=== PATIENT | female | born 1980 | race Caucasian/White ===

== ENCOUNTER 2017-02-20 07:36 | Emergency (ER) | payer MEDICAID ==
[2017-02-20 07:49] VITALS: BP 126/87; PULSE 93; RESP 16; TEMP 98.8; O2SAT 95
--- NOTE | 2017-02-20 07:59 | EDPHY ---
H & P Time Seen by Provider: 02/20/17 07:49 HPI/ROS: This patient complains of a 4 day history of cough occasionally productive of sputum and a 24 hour history of sore throat of moderate intensity associated with odynophagia. She has associated nasal congestion also for 4 days. Finally , she complains of mild left ear discomfort that feels like pressure. She denies any other associated symptoms. She notes no clear exacerbating or alleviating factors for symptoms except for worsening of her cough when she smokes cigarettes and improvement when she uses her albuterol inhaler. Her last albuterol use was last night. ROS: No fevers or chills. No other constitutional symptoms HEENT: No facial pain. No change in her hearing. No discharge from her ear. No change in her voice. Pulmonary: No pleuritic pain. No respiratory distress. No hemoptysis. Cardiovascular: No lightheadedness. No leg swelling or pain. No heart palpitations GI: No belly pain. No nausea vomiting. Integumentary: No skin rash 7 point ROS is otherwise negative Past Medical/Surgical History: ADHD Asthma Smoking Status: Heavy smoker Physical Exam: Physical Exam Vital signs are normal. General: No acute distress HEENT: Nose: Clear discharge bilaterally. No sinus tenderness to percussion. Ears: External canals and tympanic membranes are clear with no erythema or abnormal findings bilaterally. Oropharynx: No erythema or exudates. No dysphonia. No drooling or stridor. Eyes: Pupils equal and react to light. Extraocular motions are intact. Neck: Supple with no meningismus. No lymphadenopathy Lungs: Minimal expiratory wheeze. No rales or rhonchi are appreciated. No respiratory distress. Cardiac: Regular rate and rhythm with no murmur gallop or rub. No lower extremity swelling or calf tenderness. Skin: No rash or pallor. Neuro: Alert with no focal deficits noted. Initial differential diagnosis: URI with cough, viral pharyngitis, strep pharyngitis, bronchitis, mild asthma exacerbation Constitutional: Initial Vital Signs Temperature (C) 37.1 C 02/20/17 07:37 Heart Rate 93 02/20/17 07:37 Respiratory Rate 16 02/20/17 07:37 Blood Pressure 126/87 H 02/20/17 07:37 O2 Sat (%) 95 02/20/17 07:37 O2 Delivery Mode Room Air Allergies/Adverse Reactions: amoxicillin Allergy (Severe, Verified 02/20/17 07:49) Swelling/neck,face,throat Penicillins Allergy (Intermediate, Verified 02/20/17 07:49) Swelling/neck,face,throat Home Medications: Medication Instructions Recorded Clonidine 04/20/16 INTUNIV 04/20/16 LaMICtal 04/20/16 Albuterol 02/20/17 Albuterol Hfa Anes Only [Proair 2 puffs IH Q4 PRN #1 mdi 02/20/17 Hfa Icu (*)] Azithromycin [Zithromax] 250 mg PO DAILY #6 tab 02/20/17 Flovent 110 MCG Hfa MDI (*) 02/20/17 Fluticasone Hfa 220 Mcg [Flovent 2 puffs IH DAILY #1 mdi 02/20/17 220 MCG Hfa MDI (*)] MDM/Departure - MDM ED Course/Re-evaluation: Rapid strep is negative. I counseled this patient to quit smoking Discussion: Smoker with cough, minimal wheeze, history of asthma will cover her for potential bacterial bronchitis given risk factor of smoking. However, no clinical evidence currently to suggest lower respiratory infection, sepsis or other concerning findings. - Depart Disposition: Home, Routine, Self-Care Clinical Impression: Cough, Viral pharyngitis Asthma Qualifiers: Asthma severity: mild intermittent Asthma complication type: uncomplicated Qualified Code(s): J45.20 - Mild intermittent asthma, uncomplicated Condition: Good Instructions: How to Stop Smoking (ED) Additional Instructions: Diagnoses: 1. Cough 2. Asthma 3. Viral pharyngitis Plan: Humidifier Quit smoking Continue your albuterol and Flovent Add Zithromax antibiotic Ibuprofen and/or Tylenol for sore throat as needed. Return for any significant worsening despite treatment plan Prescriptions: Albuterol Hfa Anes Only [Proair Hfa Icu (*)] 2 puffs IH Q4 PRN #1 mdi PRN Reason: Wheezing Azithromycin [Zithromax] 250 mg PO DAILY #6 tab Fluticasone Hfa 220 Mcg [Flovent 220 MCG Hfa MDI (*)] 2 puffs IH DAILY #1 mdi Referrals: CHRIS CARTER,. [Primary Care Provider] - As per Instructions
== END 2017-02-20 08:22 | disposition home or self-care (01) ==
LOC: CED 07:36
DX: J45.20 Mild intermittent asthma, uncomplicated (principal); J02.8 Acute pharyngitis due to other specified organisms; B97.89 Other viral agents as the cause of diseases classified elsewhere; F17.200 Nicotine dependence, unspecified, uncomplicated
CPT/HCPCS: 87880-PO

== ENCOUNTER 2017-07-27 11:24 | Emergency (ER) | payer MEDICAID ==
[2017-07-27 11:37] VITALS: BP 125/86; RESP 16; TEMP 98.4
--- NOTE | 2017-07-27 11:58 | EDPHY ---
H & P Time Seen by Provider: 07/27/17 11:52 HPI/ROS: This patient lost her balance at the 1st landing of stairs in her home 3 days prior to arrival and fell catching herself against the wall but injuring her left great toe. She does not recall which direction her toe went but she has had ongoing moderate to severe pain to her toe since that time that worsens with ambulation in partially improves with ibuprofen. She took 800 mg of ibuprofen this morning at 7:30 a.m.. She drove herself here by private vehicle for further evaluation. ROS: Neuro: No numbness or tingling. No head injury or headache. Musculoskeletal: No other injuries. Integumentary: No gross discoloration to the toe. No lacerations abrasions. 5 point ROS is otherwise negative. Past Medical/Surgical History: Mood disorder. Smoking Status: Heavy smoker Physical Exam: Physical Exam Vital signs are normal. General: No acute distress HEENT: Atraumatic. Eyes: Pupils equal and react to light. Extraocular motions are intact. Lungs: No respiratory distress. Cardiac: Brisk capillary refill is intact throughout. Skin: No rash or pallor. Extremities: Atraumatic normal except for left great toe Left great toe: Patient has mild tenderness throughout the extends to the distal 1st metatarsal head region Neuro: Alert and oriented x3 with no sensorimotor deficits in the affected toe. Initial differential diagnosis: Toe sprain versus fracture versus contusion. Constitutional: Initial Vital Signs Temperature (C) 36.9 C 07/27/17 11:32 Heart Rate 75 07/27/17 11:32 Respiratory Rate 16 07/27/17 11:32 Blood Pressure 125/86 H 07/27/17 11:32 O2 Sat (%) 96 07/27/17 11:32 Allergies/Adverse Reactions: amoxicillin Allergy (Severe, Verified 07/27/17 11:28) Swelling/neck,face,throat Penicillins Allergy (Intermediate, Verified 07/27/17 11:28) Swelling/neck,face,throat Home Medications: Medication Instructions Recorded Clonidine 04/20/16 INTUNIV 04/20/16 LaMICtal 04/20/16 Albuterol 02/20/17 Flovent 110 MCG Hfa MDI (*) 02/20/17 MDM/Departure - MDM Diagnostics: Three-view to x-ray: Negative for fracture by my interpretation ED Course/Re-evaluation: Our nurse placed the patient in a postop shoe. I counseled the patient regarding toe sprain. Discussion: Patient with uncomplicated toe sprain without evidence of fracture , other foot injury, ankle injury or other concerning findings. - Depart Disposition: Home, Routine, Self-Care Clinical Impression: Toe sprain Qualifiers: Encounter type: initial encounter Qualified Code(s): S93.509A - Unspecified sprain of unspecified toe(s), initial encounter Condition: Good Instructions: Sprain (ED) Additional Instructions: Diagnosis: Toe sprain Plan: Postop shoe until symptoms improve Continue ibuprofen Add Tylenol if needed Symptoms should improve over the next 5-7 days. If you're not improving, follow up with the cleaning specialist-name and number listed below. Referrals: Patricia Ruiz DPM [Doctor of Podiatric Medicine] - As per Instructions
[2017-07-27 12:44] VITALS: PULSE 70; O2SAT 95
== END 2017-07-27 12:44 | disposition home or self-care (01) ==
LOC: CED 11:24
DX: S93.502A Unspecified sprain of left great toe, initial encounter (principal); F17.200 Nicotine dependence, unspecified, uncomplicated; W19.XXXA Unspecified fall, initial encounter; Y92.009 Unspecified place in unspecified non-institutional (private) residence as the place of occurrence of the external cause
CPT/HCPCS: 73660-PO; L3260

== ENCOUNTER 2017-10-20 11:18 | Emergency (ER) | payer MEDICAID ==
[2017-10-20 11:29] VITALS: BP 137/92; PULSE 88; RESP 14; TEMP 97.2; O2SAT 96
[2017-10-20] MEDS ORDERED: IBUPROFEN 600 MG TAB PO ONE (11:35)
--- NOTE | 2017-10-20 11:37 | EDPHY ---
H & P Time Seen by Provider: 10/20/17 11:30 HPI/ROS: CHIEF COMPLAINT: Right ankle pain HISTORY OF PRESENT ILLNESS: 36-year-old female presents with right ankle pain. She twisted her ankle this morning while walking down some stairs. Immediate onset of moderate pain and a popping sensation in her ankle. Able to bear weight. No other injuries. ROS: No numbness, weakness, bleeding, syncopal episode. Past Medical/Surgical History: Asthma Anxiety PTSD Smoking Status: Heavy smoker Physical Exam: Alert, pleasant Extremities: Right ankle with swelling over the lateral malleolus, posterior lateral malleolus tenderness, proximal fifth metatarsal tenderness, no midfoot tenderness. The ankle is stable and the Achilles tendon is intact. Vascular: Pedal pulses 2+ Neurologic: Ankle and foot with normal sensation and strength Skin: Intact Constitutional: Initial Vital Signs Temperature (C) 36.2 C 10/20/17 11:23 Heart Rate 88 10/20/17 11:23 Respiratory Rate 14 10/20/17 11:23 Blood Pressure 137/92 H 10/20/17 11:23 O2 Sat (%) 96 10/20/17 11:23 O2 Delivery Mode Room Air Allergies/Adverse Reactions: amoxicillin Allergy (Severe, Verified 07/27/17 11:28) Swelling/neck,face,throat Penicillins Allergy (Intermediate, Verified 07/27/17 11:28) Swelling/neck,face,throat Home Medications: Medication Instructions Recorded Clonidine 04/20/16 INTUNIV 04/20/16 LaMICtal 04/20/16 Albuterol 02/20/17 Flovent 110 MCG Hfa MDI (*) 02/20/17 Medical Decision Making - Diagnostics Imaging Results: Imaging Impressions Ankle X-Ray 10/20/17 11:29 Impression: Negative right ankle series. Foot X-Ray 10/20/17 11:31 Impression: Negative right foot radiographs. X-ray independently reviewed by me reveals no acute fracture. ED Course/Re-evaluation: This patient presents with right ankle pain and swelling, consistent with right ankle sprain. X-ray reveals no evidence of fracture. She was placed in an ankle stirrup splint and crutches dispensed. - Data Points Medications Given: Discontinued Medications Ibuprofen (Motrin) 600 mg PO EDNOW ONE Stop: 10/20/17 11:36 Last Admin: 10/20/17 11:39 Dose: 600 mg Departure - Departure Disposition: Home, Routine, Self-Care Clinical Impression: Ankle sprain Qualifiers: Encounter type: initial encounter Involved ligament of ankle: tibiofibular ligament Laterality: right Qualified Code(s): S93.431A - Sprain of tibiofibular ligament of right ankle, initial encounter Condition: Good Instructions: Ankle Sprain (ED), Crutch Instructions (ED), Ankle Stirrup Splint (ED) Additional Instructions: Ibuprofen 600 mg 3 times daily while the pain persists. Referrals: CHRIS CARTER,. [Primary Care Provider] - As per Instructions Stand Alone Forms: Work Excuse
== END 2017-10-20 12:14 | disposition home or self-care (01) ==
LOC: CED 11:18
DX: S93.431A Sprain of tibiofibular ligament of right ankle, initial encounter (principal); J45.909 Unspecified asthma, uncomplicated; F17.200 Nicotine dependence, unspecified, uncomplicated; X58.XXXA Exposure to other specified factors, initial encounter; Y99.8 Other external cause status; Y93.01 Activity, walking, marching and hiking; Z88.0 Allergy status to penicillin
CPT/HCPCS: 73610-PO; 73630-PO; L4350

== ENCOUNTER 2018-06-10 20:35 | Emergency (ER) | payer MEDICAID ==
[2018-06-10] MEDS ORDERED: ALBUTEROL INH PREPACK MDI TAKEHOME ONE (21:08)
--- NOTE | 2018-06-10 21:08 | EDPHY ---
H & P Time Seen by Provider: 06/10/18 20:50 HPI/ROS: This patient reports a one-week history of a sore throat the and hoarse voice associated with a dry intermittent cough. She describes the throat pain as burning in nature a and moderate intensity at times severe. It worsens with swallowing but she still tolerating p.o. Intake. She had low-grade fevers until today. She reports years of around 100 degrees over the past few days. The 1st 2 days illness she also vomiting diarrhea which has subsequently resolved. She arrived by private vehicle for evaluation. ROS: Constitutional: No high fevers or chills. No fatigue. HEENT: Mild nasal congestion. No sinus pain. No ear pain. Pulmonary: No pleuritic pain. No hemoptysis. No shortness of breath, she does report wheezing at times Cardiovascular: No complaints GI: No vomiting diarrhea for the past 5 days. She is tolerating good p.o. Intake. No abdominal pain Integumentary: No rash 7 point review of symptoms is performed and otherwise negative with exception of pertinent positives and negatives listed in HPI and ROS Smoking Status: Heavy smoker Physical Exam: Physical Exam Vital signs are normal. General: No acute distress HEENT: Nose: Clear discharge bilaterally. No sinus tenderness to percussion. Ears: External canals and tympanic membranes are clear with no erythema or abnormal findings bilaterally. Oropharynx: No erythema or exudates. She does have dysphonia No drooling or stridor. Eyes: Pupils equal and react to light. Extraocular motions are intact. Neck: Supple with no meningismus. No lymphadenopathy Lungs: Dry cough with wheeze when she coughs but no wheezing with tidal volume respirations. No rales or rhonchi. Cardiac: Regular rate and rhythm with no murmur gallop or rub Skin: No rash or pallor. Neuro: Alert with no focal deficits noted. Initial differential diagnosis: Parainfluenza or similar viral laryngitis/ bronchitis. Strep pharyngitis Constitutional: Initial Vital Signs Temperature (C) 36.6 C 06/10/18 20:42 Heart Rate 82 06/10/18 20:42 Respiratory Rate 18 06/10/18 20:42 Blood Pressure 127/83 H 06/10/18 20:42 O2 Sat (%) 99 06/10/18 20:42 O2 Delivery Mode Room Air Allergies/Adverse Reactions: amoxicillin Allergy (Severe, Verified 07/27/17 11:28) Swelling/neck,face,throat Penicillins Allergy (Intermediate, Verified 07/27/17 11:28) Swelling/neck,face,throat Home Medications: Medication Instructions Recorded Clonidine 04/20/16 INTUNIV 04/20/16 LaMICtal 04/20/16 Albuterol 02/20/17 Flovent 110 MCG Hfa MDI (*) 02/20/17 Mbx Soln;Maalox/Diphen/Lido 5 - 15 ml PO Q2 PRN #150 ml 06/10/18 [Maalox/Diphenhydramine/Lido] MDM/Departure - MDM Diagnostics: Rapid strep is negative Medications Given: Discontinued Medications Albuterol Sulfate (Proventil Inh Prepack) 1 mdi TAKEHOME EDNOW ONE Stop: 06/10/18 21:09 Last Admin: 06/10/18 21:35 Dose: 1 mdi Ibuprofen (Motrin) 600 mg PO EDNOW ONE Stop: 06/10/18 21:11 Last Admin: 06/10/18 21:35 Dose: 600 mg ED Course/Re-evaluation: The patient's presentation is consistent with viral laryngitis/bronchitis. I counseled regarding this-likely parainfluenza or similar virus. She has no clinical evidence of lower respiratory infection or other complicating factors. I think that she will feel some improvement in terms of symptomatic control with MDX and albuterol inhaler. She understands the need to return should she develop any significant worsening despite the treatment plan. - Depart Disposition: Home, Routine, Self-Care Clinical Impression: Laryngitis, Viral bronchitis Condition: Good Instructions: Laryngitis (ED), Acute Bronchitis (ED) Additional Instructions: Diagnoses: 1. Laryngitis 2. Viral bronchitis Plan: Humidifier Albuterol inhaler with spacer for cough, wheeze or shortness of breath Ibuprofen and/or Tylenol for pain as needed MDX solution-rinse gargle spit in addition as needed If symptoms should improve over the next 3-5 days. Follow up with primary care physician for any ongoing symptoms despite treatment plan Return emergency department for any significant worsening despite treatment plan Prescriptions: Mbx Soln;Maalox/Diphen/Lido [Maalox/Diphenhydramine/Lido] 5 - 15 ml PO Q2 PRN # 150 ml PRN Reason: Sore Throat Referrals: SHAHNAZ PEREZ [Other] - As per Instructions
[2018-06-10] MEDS ORDERED: IBUPROFEN 600 MG TAB PO ONE (21:10)
[2018-06-10 21:38] VITALS: BP 147/78
== END 2018-06-10 21:37 | disposition home or self-care (01) ==
LOC: CED 20:35
DX: J20.9 Acute bronchitis, unspecified (principal); J04.0 Acute laryngitis; F17.200 Nicotine dependence, unspecified, uncomplicated